=== PATIENT | male | born 1990 | race Caucasian/White ===

== ENCOUNTER 2021-12-19 21:26 | Emergency (ER) | payer OTHER ==
[~2021-12-19] VITALS: Ht 167.6 cm; Wt 86.4 kg
[2021-12-19] MEDS ORDERED: METO-558 PO (21:39)
[2021-12-19] MEDS ORDERED: AMLO-258 PO (21:39)
[2021-12-19] MEDS ORDERED: AmLODIPine BESYLATE 10 MG TABLET PO ONE (22:00)
[2021-12-19] MEDS ORDERED: METOPROLOL SUCCINATE 50 MG ER TABLET PO ONE (22:15)
[2021-12-20 01:04] VITALS: BP 148/91
== END 2021-12-20 02:50 ==
LOC: EMS 21:29
DX: I10 Essential (primary) hypertension (principal)
CPT/HCPCS: 99283